=== PATIENT | female | born 1960 | race Caucasian/White ===

== ENCOUNTER 2019-01-09 05:29 | Day surgery (SDC) | payer BC ==
[2019-01-09] MEDS: CYCLOPENTOLATE/PHENYLEPH 2 ML OPH OPER (06:13)
[2019-01-09] MEDS: TROPICAMIDE 1% 15 ML OPH OPER (06:15)
[2019-01-09] MEDS: MOXIFLOXACIN 0.5% 3 ML OPH OPER (06:16)
[2019-01-09] MEDS: DICLOFENAC 0.1% 2.5 ML OPH OPER (06:18)
[2019-01-09] MEDS: SOD CHLORIDE 0.9% 1,000 ML IV (06:19)
[2019-01-09] MEDS ORDERED: CEFAZOLIN 1 GM INJ (06:48)
[2019-01-09] MEDS ORDERED: EPINEPHrine 1 MG INJ (06:49)
[2019-01-09] MEDS ORDERED: GENTAMICIN 80 MG INJ (06:49)
[2019-01-09] MEDS ORDERED: PROPOFOL 20 ML (07:05)
[2019-01-09] MEDS ORDERED: FENTAnyl 50 MCG/ML VIAL (07:05)
[2019-01-09] MEDS ORDERED: LABETALOL HCL 20MG INJ (07:49)
[2019-01-09] MEDS ORDERED: MIDAZOLAM 1 MG/ML 2 ML INJ (07:50)
[2019-01-09] MEDS ORDERED: BALANCED SALT SOLN 500 ML OPH IRRIG (07:52)
[2019-01-09] MEDS ORDERED: hydrALAzine 20 MG INJ IV (08:00)
[2019-01-09] MEDS ORDERED: ONDANSETRON 4 MG INJ IV (08:00)
[2019-01-09] MEDS ORDERED: OXYCODONE/ACETAMINOPHEN (5/325) TAB PO ×2 (08:00)
[2019-01-09] MEDS ORDERED: LABETALOL HCL 20MG INJ IV (08:00)
[2019-01-09] MEDS ORDERED: FENTAnyl 50 MCG/ML VIAL IV ×3 (08:00)
[2019-01-09] MEDS: DEXAMETHASONE 4 MG/ML 1 ML INJ (08:05)
[2019-01-09] MEDS: CARBACHOL 0.01% 1.5 ML OPH INJ (08:05)
[2019-01-09] MEDS: TETRACAINE 0.5% 4 ML OPH (08:06)
[2019-01-09] MEDS: LIDOCAINE 4% (MPF) 5 ML INJ (08:06)
[2019-01-09] MEDS: NA HYALURONATE/CHONDROITIN 0.5 ML SYG (08:51)
== END 2019-01-09 09:45 | disposition home or self-care (01) ==
LOC: SDS 05:29
DX: H25.042 Posterior subcapsular polar age-related cataract, left eye (principal); E11.9 Type 2 diabetes mellitus without complications; I10 Essential (primary) hypertension; Z79.82 Long term (current) use of aspirin; Z79.84 Long term (current) use of oral hypoglycemic drugs; Z79.4 Long term (current) use of insulin
CPT/HCPCS: 66984; 82962

== ENCOUNTER 2019-02-27 06:50 | Day surgery (SDC) | payer BC ==
[2019-02-27] MEDS: CYCLOPENTOLATE/PHENYLEPH 2 ML OPH OPER (07:42)
[2019-02-27] MEDS: SOD CHLORIDE 0.9% 1,000 ML IV (07:43)
[2019-02-27] MEDS: MOXIFLOXACIN 0.5% 3 ML OPH OPER (07:43)
[2019-02-27] MEDS: DICLOFENAC 0.1% 2.5 ML OPH OPER (07:43)
[2019-02-27] MEDS: TROPICAMIDE 1% 15 ML OPH OPER (07:43)
[2019-02-27] MEDS ORDERED: NA HYALURONATE/CHONDROITIN 0.5 ML SYG (08:19)
[2019-02-27] MEDS: DEXAMETHASONE 4 MG/ML 1 ML INJ (08:19)
[2019-02-27] MEDS ORDERED: LIDOCAINE 4% (MPF) 5 ML INJ (08:19)
[2019-02-27] MEDS: CEFAZOLIN 1 GM INJ (08:19)
[2019-02-27] MEDS: CARBACHOL 0.01% 1.5 ML OPH INJ (08:19)
[2019-02-27] MEDS ORDERED: PROPOFOL 200 MG INJ (08:20)
[2019-02-27] MEDS ORDERED: LIDOCAINE 2% (SDV) 5 ML INJ (08:20)
[2019-02-27] MEDS ORDERED: MIDAZOLAM 1 MG/ML 2 ML INJ (08:35)
[2019-02-27] MEDS ORDERED: FENTAnyl 50 MCG/ML VIAL (08:35)
[2019-02-27] MEDS ORDERED: HYDROmorphONE 1 MG/5 ML IV SYRINGE IV ×2 (09:30)
[2019-02-27] MEDS ORDERED: ONDANSETRON 4 MG INJ IV (09:30)
[2019-02-27] MEDS ORDERED: MEPERIDINE 25 MG INJ IV (09:30)
[2019-02-27] MEDS ORDERED: METOCLOPRAMIDE 10 MG INJ IV (09:30)
[2019-02-27] MEDS ORDERED: DIPHENHYDRAMINE 50 MG INJ IV (09:30)
[2019-02-27] MEDS ORDERED: FENTAnyl 50 MCG/ML VIAL IV (09:30)
[2019-02-27] MEDS ORDERED: LABETALOL HCL 20MG INJ IV (09:30)
== END 2019-02-27 11:31 | disposition home or self-care (01) ==
LOC: SDS 06:50
DX: H25.11 Age-related nuclear cataract, right eye (principal); E11.9 Type 2 diabetes mellitus without complications; I10 Essential (primary) hypertension; E78.5 Hyperlipidemia, unspecified; Z79.82 Long term (current) use of aspirin; Z79.4 Long term (current) use of insulin
CPT/HCPCS: 66984; 82962; 93005